=== PATIENT | female | born 1960 | race Caucasian/White ===

== ENCOUNTER 2018-08-21 07:30 | Day surgery (SDC) | payer MEDICARE ==
[2018-08-21] MEDS ORDERED: PROPOFOL INJ 200 MG/20 ML VIAL IV ONE (07:34)
[2018-08-21 09:44] VITALS: BP 112/59
--- NOTE | 2018-08-21 12:11 | Operative Report ---
Operative Report DATE OF SURGERY: 08/21/18 Operative Report: The risks, benefits and alternatives of the procedure including the risk of bleeding, perforation requiring surgery have been explained to the patient in detail and informed consent has been obtained. Patient is brought back to the endoscopy suite and placed in a left, lateral decubital position. Timeout was called. Propofol medication is administered. Rectal examination is done which did not reveal any masses, tears or fissures. An Olympus videoscope was introduced into the patient's rectum. The scope was then carefully advanced all the way to the cecum. The cecum was identified by the usual anatomical landmarks including the ileocecal valve as well as the appendiceal office. Photodocumentation is obtained. The prep was reasonably good although there is some areas where there is solid fecal material and therefore mention of the presence or absence of polyps cannot be done. The scope was then sequentially pulled back via the various segments of the colon including the ascending colon, hepatic flexure, transverse colon, splenic flexure, descending colon and finally into the rectosigmoid portions of the colon. Retroflexion maneuver is performed. PREOPERATIVE DIAGNOSIS: Abnormal DNA testing of stool contents POSTOPERATIVE DIAGNOSIS: 3 sigmoid polyps that on the left side of the colon that are able to be removed via snare polypectomy these are retrieved. Diverticulosis without any evidence of diverticulitis. Internal hemorrhoids. Hepatic flexure polyp status post biopsy. It is too big to be removed via snare polypectomy, it has a depression and it biopsies obtained rule out malignancy. Proximal transverse polyp not able to be removed via snare polypectomy. Felicitas ink injection is performed submucosal injection done in between the 2 lesions. Possible surgical consideration for removal. OPERATION: Colonoscopy with snare polypectomy. Colonoscopy with submucosal injection. Colonoscopy with biopsy SURGEON: ANTHONY FUNK ANESTHESIA: LMAC TISSUE REMOVED OR ALTERED: As noted above. COMPLICATIONS: None. ESTIMATED BLOOD LOSS: None. INTRAOPERATIVE FINDINGS: As noted above. PROCEDURE: Patient tolerated the procedure well. No postprocedure complications are noted. Patient discharged in good condition. Discharge date 08/21/2018. Discharge diet: Regular. Discharge activity: Regular. 2 to 3-week follow-up to discuss findings. Patient is instructed to call the office or proceed to the emergency room should there be any further proximal questions. Wait on the pathology. Likely will need right-sided hemicolectomy. Depending on the biopsies. The tattoo that was placed is in between the hepatic flexure lesion as well as the proximal transverse colon polyp. Referred surgery at some point. Surveillance colonoscopy thereafter depending on the nature of the lesion and what sort of operation she needs.
== END 2018-08-21 09:45 | disposition home or self-care (01) ==
LOC: END 07:30
PROVIDERS: ATTEND Internal Medicine Gastroenterology
DX: K63.5 Polyp of colon (principal); D12.6 Benign neoplasm of colon, unspecified; D12.3 Benign neoplasm of transverse colon; K57.30 Diverticulosis of large intestine without perforation or abscess without bleeding; K64.8 Other hemorrhoids; I10 Essential (primary) hypertension; E11.9 Type 2 diabetes mellitus without complications; K21.9 Gastro-esophageal reflux disease without esophagitis; F17.210 Nicotine dependence, cigarettes, uncomplicated; E78.5 Hyperlipidemia, unspecified; Z79.899 Other long term (current) drug therapy; Z79.84 Long term (current) use of oral hypoglycemic drugs; Z79.891 Long term (current) use of opiate analgesic
CPT/HCPCS: 45380; 45381; 45385; 82962; 88305 ×2; J2704; 811

== ENCOUNTER → 2018-09-22 | Outpatient (CLI) | payer MEDICARE ==
[2018-09-22 12:05] LABS: HEMATOCRIT 47.5 % (36.0-47.0); HEMOGLOBIN 15.9 g/dL (12.0-15.5); MEAN CORPUSCULAR HEMOGLOBIN 31.3 pg (27.0-33.4); MEAN CORPUSCULAR HGB CONC 33.6 g/dL (32.0-36.0); MEAN CORPUSCULAR VOLUME 93 fl (80-97); PLATELET COUNT 278 10^3/uL (150-450); RED BLOOD COUNT 5.09 10^6/uL (3.72-5.28); RED CELL DISTRIBUTION WIDTH 13.1 % (11.5-14.0); WHITE BLOOD COUNT 10.4 10^3/uL (4.0-10.5)
--- NOTE | 2018-09-22 12:17 | RADIOLOGY REPORT (SQ) ---
EXAM DESCRIPTION: CHEST PA/LATERAL COMPLETED DATE/TIME: 09/22/2018 10:26 am REASON FOR STUDY: COUGH COMPARISON: None. EXAM PARAMETERS: NUMBER OF VIEWS: two views TECHNIQUE: Digital Frontal and Lateral radiographic views of the chest acquired. RADIATION DOSE: NA LIMITATIONS: none FINDINGS: LUNGS AND PLEURA: No opacities, masses or pneumothorax. No pleural effusion. MEDIASTINUM AND HILAR STRUCTURES: No masses or contour abnormalities. HEART AND VASCULAR STRUCTURES: Heart normal size. No evidence for failure. BONES: No acute findings. HARDWARE: None in the chest. OTHER: No other significant finding. IMPRESSION: NO SIGNIFICANT RADIOGRAPHIC FINDING IN THE CHEST. TECHNICAL DOCUMENTATION: JOB ID: [id number] [employer]- All Rights Reserved Reading location - IP/workstation name: [email or web address]
[2018-09-22 12:31] LABS: ANION GAP 11 (5-19); BLOOD UREA NITROGEN 11 mg/dL (7-20); CALCIUM 9.9 mg/dL (8.4-10.2); CARBON DIOXIDE 33 mmol/L (22-30); CHLORIDE 96 mmol/L (98-107); GLUCOSE 104 mg/dL (75-110); POTASSIUM 4.8 mmol/L (3.6-5.0); SODIUM 139.9 mmol/L (137-145)
--- NOTE | 2018-09-22 12:48 | EKG REPORT ---
SEVERITY:- BORDERLINE ECG - SINUS RHYTHM PROBABLE LEFT ATRIAL ABNORMALITY : Confirmed by: Dilshad Champagne MD 22-Sep-2018 12:47:45
== END ==
LOC: OD 10:11
PROVIDERS: ATTEND Surgery
DX: Z01.818 Encounter for other preprocedural examination (principal); D12.3 Benign neoplasm of transverse colon; E11.9 Type 2 diabetes mellitus without complications; I10 Essential (primary) hypertension; E66.9 Obesity, unspecified; F17.200 Nicotine dependence, unspecified, uncomplicated; R06.02 Shortness of breath; F32.9 Major depressive disorder, single episode, unspecified; K21.9 Gastro-esophageal reflux disease without esophagitis; M19.90 Unspecified osteoarthritis, unspecified site; E78.5 Hyperlipidemia, unspecified; M25.552 Pain in left hip
CPT/HCPCS: 36415; 71046; 80048; 85027; 93005; 93010

== ENCOUNTER 2018-10-21 19:21 | Emergency (ER) | payer MEDICARE ==
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
[2018-10-21] MEDS ORDERED: HYDROCODONE/ACETAMINOPHEN 5-325 MG TABLET PO ONE (20:35)
--- NOTE | 2018-10-21 21:31 | RADIOLOGY REPORT (SQ) ---
EXAM DESCRIPTION: XR SHOULDER 2 OR MORE VIEWS COMPLETED DATE/TME: 10/21/2018 20:35 CLINICAL HISTORY: 58 years, Female, left shoulder injury COMPARISON: Correlation with chest x-rays performed 10/20/2018 and 09/22/2018 NUMBER OF VIEWS: Three TECHNIQUE: One internal view, one external view and one Y view of the left shoulder LIMITATIONS: None. FINDINGS: Glenohumeral alignment is maintained. No fracture. Mild degenerative changes at the acromioclavicular joint. The scapula is without acute finding. Partially visualized left ribs show fracture at the postero-lateral 6th rib with evidence of healing. This fracture is not definitely seen when compared to previous chest x-rays (performed on 10/20/2018 and 09/22/2018), possibly due to differences in technique. IMPRESSION: 1. No acute finding of the left shoulder joint. 2. Left 6th rib fracture of indeterminate chronicity but possibly subacute or chronic. Additional dedicated rib x-rays can be obtained as clinically warranted. copyright 2010 [employer]- All Rights Reserved
--- NOTE | 2018-10-21 21:37 | RADIOLOGY REPORT (SQ) ---
EXAM DESCRIPTION: XR FOOT 1-2 VIEWS COMPLETED DATE/TME: 10/21/2018 20:34 CLINICAL HISTORY: foot injury COMPARISON: None FINDINGS: Two x-ray views of the left foot were submitted. There is an enthesophyte at the plantar aspect of the calcaneus. Osteophytic formation is noted at the tibiotalar joint and talonavicular joint. There is an anterior spur/beak formation at the level of the distal talus. There is no acute fracture or dislocation. Bone mineralization is within normal limits. There is no radiopaque foreign body material. IMPRESSION: No acute fracture or dislocation.
--- NOTE | 2018-10-21 21:39 | RADIOLOGY REPORT (SQ) ---
EXAM DESCRIPTION: XR KNEE 4 OR MORE VIEWS COMPLETED DATE/TME: 10/21/2018 20:35 CLINICAL HISTORY: knee injury COMPARISON: None FINDINGS: Four x-ray views of the right knee were submitted. There is no acute fracture or dislocation. Bone mineralization is within normal limits. There is osteophytic formation at the medial, lateral and patellofemoral compartment. There is a suprapatellar fluid collection. There is atherosclerosis. There is no radiopaque foreign body material. IMPRESSION: No acute fracture or dislocation. Degenerative changes. Suprapatellar fluid collection.
[2018-10-21 22:21] VITALS: BP 141/79
== END 2018-10-21 22:40 | disposition home or self-care (01) ==
LOC: ER 19:21
DX: S80.211A Abrasion, right knee, initial encounter (principal); S92.345A Nondisplaced fracture of fourth metatarsal bone, left foot, initial encounter for closed fracture; S86.911A Strain of unspecified muscle(s) and tendon(s) at lower leg level, right leg, initial encounter; M25.561 Pain in right knee; S49.92XA Unspecified injury of left shoulder and upper arm, initial encounter; F17.200 Nicotine dependence, unspecified, uncomplicated; I10 Essential (primary) hypertension; W01.0XXA Fall on same level from slipping, tripping and stumbling without subsequent striking against object, initial encounter; Y92.488 Other paved roadways as the place of occurrence of the external cause
CPT/HCPCS: 99283; 73620; 73564; 73030; A9270

== ENCOUNTER 2019-01-12 06:14 | Day surgery (SDC) | payer MEDICARE ==
[2019-01-05 09:35] LABS: ABSOLUTE BASOPHILS # (AUTO) 0.1 10^3/uL (0.0-0.2); ABSOLUTE EOSINOPHILS # (AUTO) 0.2 10^3/uL (0.0-0.6); ABSOLUTE LYMPHOCYTES (AUTO) 2.1 10^3/uL (0.5-4.7); ABSOLUTE MONOCYTES (AUTO) 0.4 10^3/uL (0.1-1.4); ABSOLUTE NEUT (AUTO) 8.1 10^3/uL (1.7-8.2); BASOPHILS % (AUTO) 0.5 % (0-2); EOSINOPHILS % (AUTO) 1.5 % (0-6); HEMATOCRIT 45.1 % (36.0-47.0); HEMOGLOBIN 15.2 g/dL (12.0-15.5); LYMPHOCYTES % (AUTO) 19.3 % (13-45); MEAN CORPUSCULAR HEMOGLOBIN 31.6 pg (27.0-33.4); MEAN CORPUSCULAR HGB CONC 33.6 g/dL (32.0-36.0); MEAN CORPUSCULAR VOLUME 94 fl (80-97); MONOCYTES % (AUTO) 3.6 % (3-13); PLATELET COUNT 233 10^3/uL (150-450); RED BLOOD COUNT 4.81 10^6/uL (3.72-5.28); RED CELL DISTRIBUTION WIDTH 13.4 % (11.5-14.0); SEGMENTED NEUTROPHILS % (AUTO) 75.1 % (42-78); TOTAL CELLS COUNTED % (AUTO) 100 %; WHITE BLOOD COUNT 10.8 10^3/uL (4.0-10.5)
[2019-01-05 09:57] LABS: ANION GAP 10 (5-19); BLOOD UREA NITROGEN 12 mg/dL (7-20); CALCIUM 9.3 mg/dL (8.4-10.2); CARBON DIOXIDE 31 mmol/L (22-30); CHLORIDE 97 mmol/L (98-107); GLUCOSE 197 mg/dL (75-110); POTASSIUM 4.6 mmol/L (3.6-5.0)
--- NOTE | 2019-01-06 11:19 | EKG REPORT ---
SEVERITY:- ABNORMAL ECG - SINUS RHYTHM FIRST DEGREE AV BLOCK PROBABLE LEFT ATRIAL ABNORMALITY LOW VOLTAGE IN FRONTAL LEADS CONSIDER ANTEROSEPTAL INFARCT : Confirmed by: Dayami Kumar 06-Jan-2019 11:18:36
[~2019-01-12 06:14] MED LIST: LACTATED RINGERS 1000 ML IV PRN; LIDOCAINE 0.5% INJ-PF (5 MG/ML) 50 ML SDV SUBCUT PRN
[2019-01-12] MEDS ORDERED: PROPOFOL INJ 200 MG/20 ML VIAL IV ONE (07:12)
[2019-01-12] MEDS ORDERED: LIDOCAINE 2% INJ (20 MG/ML) 20 ML MDV ONE (07:14)
[2019-01-12] MEDS ORDERED: FENTANYL CITRATE INJ/PF 100 MCG/2 ML AMPUL IV PRN ×3 (07:19)
[2019-01-12] MEDS ORDERED: OXYCODONE-ACETAMINOPHEN 5-325 MG TABLET PO PRN ×2 (07:19)
[2019-01-12] MEDS ORDERED: PROMETHAZINE HCL INJ 25 MG/1 ML VIAL IV PRN ×2 (07:19)
[2019-01-12] MEDS ORDERED: MEPERIDINE HCL/PF INJ 25 MG/1 ML DISP.SYRIN IV PRN (07:19)
[2019-01-12] MEDS ORDERED: DIPHENHYDRAMINE HCL 50 MG/ML VIAL IV PRN (07:19)
[2019-01-12 07:22] LABS: POTASSIUM 4.5 mmol/L (3.6-5.0)
[2019-01-12] MEDS ORDERED: METOCLOPRAMIDE HCL INJ/PF 10 MG/2 ML SDV ONE (07:43)
[2019-01-12] MEDS ORDERED: FAMOTIDINE INJ/PF 20 MG/2 ML SDV IV ONE (07:43)
[2019-01-12] MEDS ORDERED: ALBUTEROL SULFATE 0.083% NEB 2.5 MG/3 ML AMPUL NEB ONE (07:44)
--- NOTE | 2019-01-12 09:03 | Discharge Summary ---
Discharge Summary (SDC) - Discharge Final Diagnosis: Colon polyps Date of Surgery: 01/12/19 Discharge Date: 01/12/19 Condition: Stable Treatment or Instructions: Discharge home. Not as tolerated. Activity: Nonstrenuous. Follow-up with me in 7 to 10 days. High-fiber diet. Fiber supplement twice daily. Referrals: COLIN TORIBIO PA-C [Primary Care Provider] - Discharge Diet: As Tolerated Respiratory Treatments at Home: Deep Breathing/Coughing, Incentive Spirometer Discharge Activity: Balance Activity w/Rest Home Care Assistance: None Needed Report the Following to Your Physician Immediately: Shortness of Breath, Nausea, Vomiting, Increase in Pain, Fever over 101 Degrees, Unusual Bleeding
--- NOTE | 2019-01-12 09:08 | Operative Report ---
Nonrecallable Operative Report DATE OF SURGERY: 01/12/19 PREOPERATIVE DIAGNOSIS: History of sessile colon polyps, found on previous colonoscopy. POSTOPERATIVE DIAGNOSIS: Sessile polyps of the hepatic flexure and sigmoid colon. OPERATION: 1. Colonoscopy to the cecum. 2. Snare polypectomy of multiple colon polyps in the hepatic flexure and sigmoid colon. SURGEON: SANJAY ROLAND ANESTHESIA: LMAC TISSUE REMOVED OR ALTERED: 1. Hepatic flexure polyp x2. 2. Sigmoid colon polyp x3. COMPLICATIONS: None apparent ESTIMATED BLOOD LOSS: Minimal PROCEDURE: Procedure in detail: After informed consent was obtained, the patient was brought to the operating room and laid in the left lateral decubitus position. The endoscope was passed up the rectum, sigmoid colon, descending colon, across the transverse colon, down the ascending colon, and into the cecum. The ileocecal valve and appendiceal orifice were identified. The scope was then withdrawn, circumferentially noting the mucosa. The prep was good. Scope was pulled back past the ascending colon, and into the hepatic flexure. In the hepatic flexure there were 2 sessile appearing polyps that were moderate in size. These were removed via hot snare polypectomy. The scope was withdrawn past the transverse colon, down the descending colon, and into the sigmoid colon. In the sigmoid colon there were 3 separate sessile polyps that were again removed via hot snare polypectomy. The scope was withdrawn into the rectum. A retroflexion maneuver was performed, noting no significant internal hemorrhoids. The scope was straightened, air was suctioned from the rectum, the scope was removed, and the procedure was concluded. All sponge, instrument, and needle counts were correct x2. Condition: Stable.
[2019-01-12 09:55] VITALS: BP 134/74
== END 2019-01-12 09:45 | disposition home or self-care (01) ==
LOC: OROUT 06:14
PROVIDERS: ATTEND Surgery
DX: Z12.11 Encounter for screening for malignant neoplasm of colon (principal); D12.6 Benign neoplasm of colon, unspecified; Z86.010 Personal history of colon polyps; E11.9 Type 2 diabetes mellitus without complications; I10 Essential (primary) hypertension; E66.9 Obesity, unspecified; R06.02 Shortness of breath; K21.9 Gastro-esophageal reflux disease without esophagitis; E78.5 Hyperlipidemia, unspecified; Z79.84 Long term (current) use of oral hypoglycemic drugs; F17.210 Nicotine dependence, cigarettes, uncomplicated; F32.9 Major depressive disorder, single episode, unspecified; Z79.899 Other long term (current) drug therapy
CPT/HCPCS: 45385; 93005; 36415 ×2; 82947; 84132; 85025; 80048; 88305 ×2; 93010; 00811; J3490; J2765; J2704; S0028; A9270; 811